=== PATIENT | female | born 1990 | race Two or more races ===

== ENCOUNTER 2020-10-15 10:56 | Emergency (ER) | payer SELFPAY ==
[~2020-10-15] VITALS: Ht 167.6 cm; Wt 79.4 kg
[2020-10-15 11:12] VITALS: BP 108/57
[2020-10-15] MEDS ORDERED: ACETAMINOPHEN 325 MG TAB PO ONE ×2 (11:36→11:45)
== END 2020-10-15 12:54 | disposition home or self-care (01) ==
LOC: ER 10:56
DX: O26.892 Other specified pregnancy related conditions, second trimester (principal); Z3A.24 24 weeks gestation of pregnancy; Z20.828 Contact with and (suspected) exposure to other viral communicable diseases
CPT/HCPCS: 36415; 87426